=== PATIENT | male | born 1995 | race Caucasian/White ===

== ENCOUNTER 2019-12-02 09:11 | Emergency (ER) | payer SELFPAY ==
[2019-12-02 09:20] VITALS: BP 114/80; PULSE 96; RESP 18; TEMP 36.7; O2SAT 98
--- NOTE | 2019-12-02 09:24 | ED.GENADUL_ITS ---
Discharge Plan Disposition Patient Disposition: HOME Condition: Stable Discharge Details Chief Complaint: Cellulitis Clinical Impression: Cellulitis, gluteal, left Primary Care Provider: Yony Brooks ED Provider: Silvia Hernandez Home Meds and New Rx's Prescriptions: New clindamycin HCl 300 mg capsule 300 mg PO BID 10 Days Qty: 20 RF: 0 No Action naproxen 500 mg tablet 500 mg PO BID RF: 0 methadone 10 mg/5 mL solution 100 mg PO DAILY RF: 0 Discharge Instructions Instructions: Cellulitis (ED) Additional Instructions: Follow up with primary care provider in 3-5 days. Return to ED sooner if any worsening or concerns. Increase oral fluids. Return immediately if any worse chlei of redness, fever, or or worsening sickness. Take medications as directed. Please take Tylenol or Ibuprofen with food every 4-6 hours as needed for pain and swelling. You were advised of possible need for admission today which he declined at this time. Stand Alone Forms: Work Release Medical Decision Making 24-year-old male presents with left buttock lesion with surrounding erythema and swelling. Patient states that this is been present for 2 weeks and has noted drainage. He does report body aches and chills and he did vomit last night. He states decreased appetite for the last 4 days. On exam he has a very large demarcated area of erythema noted to his left buttock with a central puncture wound. This area is approximately 9 cm x 9 cm. Initial lab work-up includes CBC CMP, WBC count is 16.8, absolute neutrophils 11.53, sodium 133 potassium 3.2 chloride 95 anion gap of 12.4 lactate is 1.7, C- reactive protein is 16.56. CT obtained results are noted below. Erythema edges measured and marked by ER staff, 10cm x 8.5cm in diameter measured. FINDINGS: Soft tissues: There is stranding in the posterior knee soft tissues posterior to the sacrum and left gluteus roseann muscle. There is no focal drainable collection. There is skin thickening. Bladder: Unremarkable. The prostate is not enlarged. Bowel: No obstruction or bowel wall thickening. Peritoneal cavity: No ascites, collection or mesenteric inflammatory response. IMPRESSION: Skin thickening and subcutaneous edema in the left buttock region. No drainable abscess. DATA REPOSITORY: All CT scans at this facility are submitted to the National Radiology Data Registry (NRDR) Dose Index Registry (DIR) with the [employer] (ACR). RADIATION OPTIMIZATION: All CT scans at this facility use at least one of these dose optimization techniques: automated exposure control; mA and/or kV adjustment per patient size (includes targeted exams where dose is matched to clinical indication); or iterative reconstruction. 1132: Discussed potential for admission with patient he refuses admission at this time. He would rather go home with oral antibiotics strongly encourage patient to stay he refused at this time. Discussed risks and benefits. He is alert and oriented at this time and appears to have appropriate decision making process. Discussed strict return instructions, discussed returning for any erythema that spreads outside of marked lines, fever, worsening or any point. Verbalized understanding. He is alert and oriented x4 and is able to make his own decisions. Will discharge with clindamycin he did receive 1 dose of clindamycin 600 mg IV piggyback and 2 L of normal saline in department. He is requesting food and is able to tolerate p.o. without difficulty prior to discharge. His vital signs are stable and he is remained hemodynamically stable throughout stay. HPI General Mode of arrival: ambulatory . Date/Time Provider Initiated Documentation: 12/02/19 09:20 . Limitations to Documentation: no limitations . Information obtained by: patient . HPI Narrative: 24-year-old male presents with left buttock lesion with surrounding erythema and swelling. Patient states that this is been present for 2 weeks and has noted drainage. He does report body aches and chills and he did vomit last night. He states decreased appetite for the last 4 days. On exam he has a very large demarcated area of erythema noted to his left buttock with a central puncture wound. This area is approxim ately 9 cm x 9 cm. Related Data Home Medications Medication Instructions Recorded Confirmed methadone 10 mg/5 mL oral solution 100 mg PO DAILY ml 02/02/19 12/02/19 naproxen 500 mg tablet 500 mg PO BID 02/02/19 12/02/19 clindamycin HCl 300 mg PO BID 10 Days #20 cap 12/02/19 Previous Rx's Medication Instructions Recorded clindamycin HCl 300 mg PO BID 10 Days #20 cap 12/02/19 Allergies Allergy/AdvReac Type Severity Reaction Status Date / Time No Known Allergies Allergy Unverified 12/02/19 09:25 Review of Systems Narrative: Constitutional: Negative for weight loss, alert and oriented, well groomed, normal body habitus, appears uncomfortable. HEENT: Denies trauma, headaches, blurry vision, nasal discharge, sore throat, trouble swallowing. Chest: Denies chest pain, palpitations, irregular rhythm, hypertension. Respiratory: Denies Shortness of breath, cough, hemoptysis. GI: Denies abdominal pain, diarrhea, constipation. : Denies dysuria, hematuria, flank pain, rectal bleeding. Skin: Large area of erythema and swelling and warmth noted to his left buttock x2 weeks. Neuro: Denies dizziness, blurry vision, weakness, syncope, headache or facial numbness. Hematologic: Denies easy bruising, intolerance to heat or cold, hair loss. [facility] Medical History Back pain (Acute) Generalized anxiety disorder (Acute) Headache (Acute) Obesity (Chronic) Substance abuse (Acute) Social History Smoking/Tobacco Use Status: Former Tobacco Use Alcohol Intake: current Alcohol Intake frequency: 3 or more drinks per day Drug use: Daily Substance use type: marijuana Do you feel safe at home: Yes Do you feel safe in your relationship?: Yes Exam Narrative Exam Narrative: Constitutional: Allert and oriented x3. Appears stated age. Obese body habitus. Head: Normocephalic, no trauma. Eyes: Pupils PERRLA, Red reflex noted, EOM's intact. Eyelids symmetrical withour lesions, discharge, or swelling. ENT: Bilateral TM's WNL, External ear normal to inspection, no mastoid TTP, swelling, or erythema, Nasal turbinates WNL, no nasal discharge. Normal dentition, Posterior pharynx WNL, no exudate. Chest: RRR, Normal S1, S2, distal pulses intact. Resp: Lungs clear to auscultation bilaterally, no wheezes, rales, or rhonchi. Musculoskeletal: Normal gait, 5/5 strength to all four extremities. Skin: Mildly diaphoretic, very large area of erythema noted to the left buttock measuring approximately 9 cm x 9 cm with a central wound. No fluctuance no drainable abscess noted at this time. Neurologic: Cranial nerves II-XII intact. Alert and oriented x 3. DTR's intact. Hematologic/Lymphatic: No ecchymosis, no lymphadenopathy. Skin Full body images: 1. Large area of erythema and warmth 2. Central puncture wound
[2019-12-02 09:43] LABS: Clarity Clear (Clear); Specific Gravity 1.017 (1.005-1.025)
[2019-12-02 09:44] LABS: Bilirubin Color Interference (Negative); Blood Color Interference (Negative); Glucose Color Interference mg/dL (Negative); Ketones Color Interference mg/dL (Negative); Leukocyte Esterase Color Interference (Negative); Nitrite Color Interference (Negative); Urobilinogen Color Interference EU/dL (Up TO 0.2)
[2019-12-02] MEDS: Normal Saline 1,000 ML 1000 ML IV ×2 (09:45→10:35)
[2019-12-02 09:53] LABS: Lactate 1.7 mmol/L (0.6-1.4)
[2019-12-02 09:55] LABS: Bacteria Moderate HPF (Negative); C & S Indicated? Yes; Casts Negative LPF (Negative); Crystals Negative HPF (Negative); Epithelial Cells Rare HPF (Negative); Mucus Moderate (Negative); RBC Negative HPF (0-2)
[2019-12-02] MEDS: Normal Saline Flush 10 ML SYR IVP (09:56)
[2019-12-02 09:59] LABS: Abs Immature Grans 0.08 k/cumm (0.0-0.09); Absolute Lymphocyte Count 2.82 k/cumm (1.2-3.4); Absolute Neutrophil Count 11.53 k/cumm (1.2-6.7); Basophils % 0.2; Eosinophils % 0.5; HCT 40.6 % (40.0-50.0); HGB 14.3 g/dL (13.5-17.5); Immature Grans % 0.5 %; Lymphocytes % 16.6; Mean Corp. HGB Concentration 35.2 g/dL (32.0-36.0); Mean Corpuscular Hemoglobin 30.8 pg (27.0-33.0); Mean Corpuscular Volume 87.3 fL (80-95); Monocytes % 14.3; Neutrophils % 67.9; Platelet Count 264 x1000/uL (130-400); RBC 4.65 m/cumm (4.50-6.00); RBC Distribution Width 12.2 % (11.8-14.1); White Blood Cell Count 16.98 k/cumm (4.4-10.8)
[2019-12-02 10:04] LABS: Absolute Basophil Count 0.03 k/cumm (0.0-0.2); Absolute Eosinophil Count 0.08 k/cumm (0.0-0.7); Absolute Monocyte Count 2.43 k/cumm (0.11-0.7)
[2019-12-02 10:11] LABS: ALT 127 U/L (16-63); AST 59 U/L (15-37); Albumin 3.7 g/dL (3.4-5.0); Alkaline Phosphatase 100 U/L (46-116); Anion Gap 12.4 mmol/L (3-11); BUN 9 mg/dL (7-18); Bilirubin, Total 1.9 mg/dL (0.2-1.0); C-Reactive Protein 16.56 mg/dL (0.0-0.3); CO2 25.6 mmol/L (21.0-32.0); CREATININE 1.08 mg/dL (0.70-1.30); Calcium 9.4 mg/dL (8.5-10.1); Chloride 95 mmol/L (98-107); Glucose 107 mg/dL (74-106); Potassium 3.2 mmol/L (3.5-5.1); Sodium 133 mmol/L (136-145); Total Protein 8.9 g/dL (6.4-8.2)
[2019-12-02 10:17] LABS: Diff Comment Agrees w/ Instrument; RBC Morphology Normal
[2019-12-02] MEDS: Ketorolac 30 MG/ML VIAL IVP (10:24)
--- NOTE | 2019-12-02 10:45 | NUR.NOTE ---
Nursing Note: Edge redness measure and marked 10 x 8.5 Per Silvia [employer] request
[2019-12-02] MEDS: Omnipaque 350 MG/ML 100 ML BTL IJ (10:58)
[2019-12-02] MEDS: Normal Saline - Diluent 50 ML VIAL IV (10:58)
--- NOTE | 2019-12-02 10:59 | DI.CT_ITS ---
EXAM: CT PELVIC W CLINICAL HISTORY: Left buttock cellulitis eval for abscess. TECHNIQUE: Imaging Protocol: Axial computed tomography images with coronal and sagittal reformatted images were created and reviewed. CONTRAST MATERIAL: Intravenous: Omnipaque 350 Contrast volume:100 ml Contrast route:IV - Oral: no COMPARISON: No exams were available for comparison FINDINGS: Soft tissues: There is stranding in the posterior knee soft tissues posterior to the sacrum and left gluteus roseann muscle. There is no focal drainable collection. There is skin thickening. Bladder: Unremarkable. The prostate is not enlarged. Bowel: No obstruction or bowel wall thickening. Peritoneal cavity: No ascites, collection or mesenteric inflammatory response. IMPRESSION: Skin thickening and subcutaneous edema in the left buttock region. No drainable abscess. DATA REPOSITORY: All CT scans at this facility are submitted to the National Radiology Data Registry (NRDR) Dose Index Registry (DIR) with the [employer] (ACR). RADIATION OPTIMIZATION: All CT scans at this facility use at least one of these dose optimization te chniques: automated exposure control; mA and/or kV adjustment per patient size (includes targeted exa ms where dose is matched to clinical indication); or iterative reconstruction.
[2019-12-02] MEDS: CLINDAMYCIN 600 MG/50 ML BAG 100 MG IVPB (11:01)
[2019-12-02 11:06] VITALS: BP 138/70; PULSE 82; RESP 18; TEMP 36.6; O2SAT 97
[2019-12-02 12:00] VITALS: BP 130/90; PULSE 78; RESP 16; TEMP 36.5; O2SAT 98
== END 2019-12-02 12:00 | disposition home or self-care (01) ==
PROVIDERS: Emergency Provider Registered Nurse Emergency; PCP Internal Medicine
DX: L02.31 Cutaneous abscess of buttock (principal); M79.10 Myalgia, unspecified site; R11.2 Nausea with vomiting, unspecified
CPT/HCPCS: 36415; 80053; 87040; 96361; 96365; 96375; 99285; 72193; 81003; 81015; 83605; 85025; 86140; 87086; J1885; J3490

== ENCOUNTER 2021-10-25 16:15 | Emergency (ER) | payer SELFPAY ==
[2021-10-25 16:19] VITALS: BP 141/67; PULSE 85; RESP 18; TEMP 36.3; O2SAT 99
--- NOTE | 2021-10-25 16:36 | ED.GENADUL_ITS ---
Discharge Plan Disposition Patient Disposition: HOME Condition: Improving Discharge Details Clinical Impression: Finger laceration Primary Care Provider: Yony Brooks ED Provider: Nam Mcclellan Home Meds and New Rx's Prescriptions: Continued methadone 10 mg/5 mL solution 100 mg PO DAILY RF: 0 Discharge Instructions Instructions: Finger Laceration (ED) Additional Instructions: Your tetanus was updated. You have declined any x-ray and understand the risk. Laceration repaired without difficulty. Sutures should come out in the next 10- 14 days. Keep the area clean and dry, change antibiotic dressing daily. Wear splint to avoid reopening the laceration. Please watch for new or worsening symptoms and return to the ER for any concerns. Medical Decision Making 25-year-old gentleman, [id number], tetanus status not up-to-date, presents for a right fifth digit laceration he sustained at work just prior to arrival on a piece of sheet metal while wearing gloves. We discussed the importance of updating tetanus status and obtaining x-ray. He is agreeable to tetanus status declines x-ray. Understands the risk of bony involvement, retained foreign body, etc. Denies any other injury. Reports paresthesias but neurologically grossly intact. No tendon injury. Bleeding controlled. 5 out of 5 strength. Tetanus updated. Laceration was repaired without difficulty. Antibiotic dressing was then applied and a splint was applied. Standard discharge and return precautions were provided. This documentation was generated using [employer] system, please disregard any oddities of phrase or misspellings. Medical Records Medical records reviewed: Yes I reviewed the patient's medical records. HPI General Mode of arrival: ambulatory . Date/Time Provider Initiated Documentation: 10/25/21 16:15 . Limitations to Documentation: no limitations . Information obtained by: patient . History of Present Illness 25 year old M presents to the emergency department with the chief complaint of Pinky Lac, described as mild, with intensity rated at 2. Quality is described as aching, and is localized to the right and upper extremity. Patient reports no radiation. Patient started experiencing this minute(s) (30) and it has been constant. No relieving factors improve symptom(s), No exacerbating fac tors reported . Patient notes other (tingling). Patient did receive the following treatments prior to arrival, none Related Data Home Medications Medication Instructions Recorded Confirmed methadone 10 mg/5 mL oral solution 100 mg PO DAILY ml 02/02/19 10/25/21 Allergies Allergy/AdvReac Type Severity Reaction Status Date / Time No Known Allergies Allergy Unverified 10/25/21 16:28 General Stated Complaint: Laceration ALESSANDRO: 4 Review of Systems Constitutional Constitutional: Denies fever(s) and Denies weakness Musculoskeletal Musculoskeletal: Denies arthralgias, Denies numbness and Reports tingling Integumentary/Breasts Skin/Breast: Denies erythema Neurologic Neurologic: Denies numbness, Reports tingling and Denies weakness PFSH All Active Problems Finger laceration (Acute) Medical History Back pain Generalized anxiety disorder Headache Obesity Substance abuse Social History Smoking/Tobacco Use Status: Current every day Tobacco Type: cigarettes Smoking risk assessment performed?: Yes Alcohol Intake: current Alcohol Intake frequency: 3 or more drinks per day Drug use: Daily Substance use type: marijuana Do you feel safe at home: Yes Do you feel safe in your relationship?: Yes Exam Const General: cooperative, healthy appearing, comfortable and no acute distress Orientation: alert and awake HENMT Head: normal to inspection, normocephalic and atraumatic Eyes Conjunctivae: conjunctivae normal Neck Neck: normal visual inspection, trachea midline and supple Resp Effort & Inspection: normal respiratory effort and able to speak in complete sentences Cardio Rate: regular rate Rhythm: regular rhythm Skin General skin exam: no rashes or lesions noted Neuro General: patient alert, patient awake, moves all extremities and no focal motor deficits Cognition: normal cognition Speech: speech normal Gait: normal gait Motor: muscle tone normal throughout Sensory Exam: no sensory deficits noted and normal double simultaneous stimulation Extrem General: full ROM and capillary refill normal Hand/finger images: 1. Irregular 3 cm laceration, slight oozing of blood. 5 out of 5 strength. No obvious foreign body. Diffuse mild discomfort to palpation. Patient subjectively reports some tingling but otherwise unremarkable neuro exam. Tendon function normal. Normal capillary refill and radial pulse. Psych Appearance: grossly normal Mental Status: mental status grossly normal Course Vital Signs Vital signs: Vital Signs Temperature 36.3 C L 10/25/21 16:19 Pulse 85 02/03/22 16:19 Respiratory Rate 18 10/25/21 16:19 Blood Pressure 141/67 H 10/25/21 16:19 Pulse Oximetry 99 10/25/21 16:19 Temperature 36.3 C L 10/25/21 16:19 Temperature Source Temporal Artery Scan 10/25/21 16:19 Pulse 85 10/25/21 16:19 Respiratory Rate 18 10/25/21 16:19 Respiratory Effort Non-Labored 10/25/21 16:22 Blood Pressure 141/67 H 10/25/21 16:19 Blood Pressure Position Sitting 10/25/21 16:19 Pulse Oximetry 99 10/25/21 16:19 Pain Level 3 10/25/21 16:22 Procedures Laceration Laceration 1: Site: hand Side (If applicable): left Size (cm): 3 Description: irregular Depth: simple, single layer Local Anesthetic: Lidocaine 1% Amount of anesthesia used (mL): 6 Pre-repair: wound explored, irrigated extensively and deep structures in tact Skin layer closed with: nylon Size (cm): 4-0 Number of sutures: 6 Technique: simple, interrupted Subcutaneous layer closed with: chromic gut Size: 3-0 Number of sutures: 2 Technique: simple, interrupted (Obtained hemostasis)
== END 2021-10-25 17:30 | disposition home or self-care (01) ==
PROVIDERS: Emergency Provider Physician Assistant; PCP Internal Medicine
DX: S61.216A Laceration without foreign body of right little finger without damage to nail, initial encounter (principal); W26.8XXA Contact with other sharp object(s), not elsewhere classified, initial encounter; Y99.0 Civilian activity done for income or pay
CPT/HCPCS: 12002; 29130; 90471

== ENCOUNTER 2023-06-23 11:47 | Inpatient (IN) | payer SELFPAY ==
[2023-06-23] VITALS (27 sets, daily range): BP systolic 130–199; BP diastolic 65–112; PULSE 58–134; RESP 8–36; TEMP 36.5–37.1; O2SAT 95–99
--- NOTE | 2023-06-23 12:00 | DI.CT_ITS ---
Exam(s) CT NECK W EXAM: CT NECK W INDICATION: thorat pain, peritonsillar abscess vs deep space i. COMPARISON: No exams were available for comparison TECHNIQUE: FINDINGS: VISUALIZED PARANASAL SINUSES: Unremarkable. NASOPHARYNX: Unremarkable ORODENTAL: Unremarkable. OROPHARYNX: There is a large firstly enhancing. Measures approximately 3 by 2.7 cm. No abscess on t he left side. Right tonsillar abscess extends towards the posterior pharyngeal tissues but not acros s the midline. HYPOPHARYNX: Unremarkable. Valleculae and epiglottis and aryepiglottic folds appear normal. VOCAL CORDS: Unremarkable. No masses evident. Subglottic airway appears unremarkable. THYROID GLAND: Unremarkable. Normal size and no obvious nodules. SALIVARY GLANDS: Unremarkable. No significant findings in the parotid and submandibular glands. LYMPH NODES: Slightly enlarged reactive lymph nodes in the right-side of the neck noted OTHER: VISUALIZED LUNG APICES: No significant findings. IMPRESSION: 1. Large right tonsillar abscess. Called by myself to ER physician. RADIATION DOSE DELIVERED: 597.84mGy.cm Total DLP DATA REPOSITORY: All CT scans at this facility are submitted to the National Radiology Data Registry (NRDR) Dose Index Registry (DIR) with the [employer] (ACR). RADIATION OPTIMIZATION: All CT scans at this facility use at least one of these dose optimization te chniques: automated exposure control; mA and/or kV adjustment per patient size (includes targeted exa ms where dose is matched to clinical indication); or iterative reconstruction.
--- NOTE | 2023-06-23 12:05 | W.ED.GENAD ---
Discharge Plan Disposition Patient Disposition: Admit to [facility] Discharge Details Chief Complaint: RespSymp Clinical Impression: Sepsis, Abscess of tonsil Primary Care Provider: Yony Brooks ED Provider: Lena Pitt Home Meds and New Rx's Prescriptions: No Action methadone 10 mg/5 mL solution 150 mg PO DAILY Patient Comments: PT reports change in dose. Medical Decision Making 27yo previously healthy male presenting for sore throat for 10 days. Tachycardiac on arrival to 130's, ill-appearing. Right peritonsillar swelling on exam with uvular deviation. No respiratory distress or vocal changes. No indication of airway compromise, no need for intubation. Will treat for sepsis with 2L IVFB, unasyn for intraoral carol ann. Tylenol/torado/methyl prednisone for symptoms. IV unsaysn. Labs reviewed as below, CBC with marked leukocytosis, CMP with no actionable abnormalities. Borderline elevated lactate at 2.1; will repeat after fluids. Normal procal. CT independently reviewed, peritonsillar swelling on my view, agree with radiology read below, discussed with Dr. Burr reading radiologist. Discussed with ENT administration vice president Dr. Brown who also reviewed imaging; no clear rim enhancement and potentially not amenable to drainage at this time but appropriate to try needle aspiration. Bedside aspiration done without obtaining any significant quantity of fluid; patient tolerated procedure well. On reassessment HR improved to low 90'ss. Discussed with hospitalist administration vice president Dr. Arellano and patient accepted to medicine service for further workup and management of sepsis. Imaging Data Radiologic Study: Imaging: CT Scan Radiologist's impression: IMPRESSION: 1.? Large right tonsillar abscess. Lab Data Lab results reviewed: Yes I reviewed the patient's lab results. Labs: 06/23/23 12:30 Blood Blood Culture - Pending 06/23/23 12:18 Blood Blood Culture - Pending 06/23/23 12:22 Tonsil - Not Specified Group A Streptococcus Culture - Pending Laboratory Tests Range/Units 06/23/23 06/23/23 06/23/23 12:18 12:18 12:18 WBC (4.4-10.8) 10^3/uL 17.29 H RBC (4.36-5.78) 10^6/uL 5.52 Hgb (13.5-17.5) g/dL 15.9 Hct (40.0-50.0) % 46.8 MCV (80-95) fL 85 MCH (27.0-33.0) pg 28.8 MCHC (32.0-36.0) % 34.0 RDW (11.8-14.1) % 11.5 L Plt Count (130-400) 10^3/uL 287 MPV (8.0-11.0) fL 9.0 Immature Gran % 0.6 Neutrophils % 70.3 Lymphocytes % 19.7 Monocytes % 7.3 Eosinophils % 1.7 Basophils % 0.4 Nucleated RBC % (0.0-0.3) % 0.0 Absolute Neutrophils (1.2-6.7) 10^3/uL 12.15 H Absolute Lymphocytes (1.2-3.4) 10^3/uL 3.41 H Absolute Monocytes (0.1-0.8) 10^3/uL 1.26 H Absolute Eosinophils (0.0-0.7) 10^3/uL 0.29 Absolute Basophils (0.0-0.2) 10^3/uL 0.07 VBG Lactate (0.6-1.4) mmol/L Sodium (136-145) mmol/L 135 L Potassium (3.5-5.1) mmol/L 3.5 Chloride (98-107) mmol/L 97 L Carbon Dioxide (21.0-32.0) mmol/L 30.3 Anion Gap (3-11) mmol/L 7.7 BUN (7-18) mg/dL 9 Creatinine (0.70-1.30) mg/dL 1.2 Est GFR (CKD-EPI 2020) (mL/min/1.73m2) 86.07 Glucose (74-106) mg/dL 157 H Calcium (8.5-10.1) mg/dL 10.4 H Total Bilirubin (0.2-1.0) mg/dL 0.5 AST (15-37) U/L 24 ALT (16-63) U/L 67 H Alkaline Phosphatase (46-116) U/L 138 H Total Protein (6.4-8.2) g/dL 9.8 H Albumin (3.4-5.0) g/dL 4.3 Procalcitonin ng/mL < 0.1 COVID-19 Source SARS-CoV-2 (PCR) (Negative) Monoscreen (Negative) Range/Units 06/23/23 06/23/23 06/23/23 12:18 12:18 12:34 WBC (4.4-10.8) 10^3/uL RBC (4.36-5.78) 10^6/uL Hgb (13.5-17.5) g/dL Hct (40.0-50.0) % MCV (80-95) fL MCH (27.0-33.0) pg MCHC (32.0-36.0) % RDW (11.8-14.1) % Plt Count (130-400) 10^3/uL MPV (8.0-11.0) fL Immature Gran % Neutrophils % Lymphocytes % Monocytes % Eosinophils % Basophils % Nucleated RBC % (0.0-0.3) % Absolute Neutrophils (1.2-6.7) 10^3/uL Absolute Lymphocytes (1.2-3.4) 10^3/uL Absolute Monocytes (0.1-0.8) 10^3/uL Absolute Eosinophils (0.0-0.7) 10^3/uL Absolute Basophils (0.0-0.2) 10^3/uL VBG Lactate (0.6-1.4) mmol/L 2.1 H Sodium (136-145) mmol/L Potassium (3.5-5.1) mmol/L Chloride (98-107) mmol/L Carbon Dioxide (21.0-32.0) mmol/L Anion Gap (3-11) mmol/L BUN (7-18) mg/dL Creatinine (0.70-1.30) mg/dL Est GFR (CKD-EPI 2020) (mL/min/1.73m2) Glucose (74-106) mg/dL Calcium (8.5-10.1) mg/dL Total Bilirubin (0.2-1.0) mg/dL AST (15-37) U/L ALT (16-63) U/L Alkaline Phosphatase (46-116) U/L Total Protein (6.4-8.2) g/dL Albumin (3.4-5.0) g/dL Procalcitonin ng/mL COVID-19 Source Nasal/Nares SARS-CoV-2 (PCR) (Negative) Negative Monoscreen (Negative) Negative HPI General Mode of arrival: ambulatory. Date/Time Provider Initiated Documentation: 06/23/23 11:56. Limitations to Documentation: no limitations. Information obtained by: patient. HPI Narrative: 27yo previously healthy male presenting for sore throat for 10 days. Worsening. Decreased PO the past three days, no food, has been doing 'okay' with fluids. Can swallow saliva but is painful, has been spitting it out frequently. No vocal changes. No difficulty breathing. Feels generally unwell, No fevers, chills, rash, nasuea, vomiting, abdominal pain, or other concerns. Related Data Home Medications Medication Instructions Recorded Confirmed methadone 10 mg/5 mL oral solution 150 mg PO DAILY 02/02/19 06/23/23 Allergies Allergy/AdvReac Type Severity Reaction Status Date / Time No Known Allergies Allergy Unverified 10/25/21 16:28 General Stated Complaint: RespSymp ALESSANDRO: 3 Review of Systems Narrative: see HPI PFSH All Active Problems (Updated 06/23/23 @ 15:03 by Lena Pitt MD) Sepsis (Acute) Abscess of tonsil (Acute) Medical History (Updated 06/23/23 @ 15:03 by Lena Pitt MD) Back pain Generalized anxiety disorder Headache Obesity Substance abuse Social History Smoking/Tobacco Use Status: Current every day Tobacco Type: cigarettes Smoking risk assessment performed?: Yes Alcohol Intake: current Alcohol Intake frequency: 3 or more drinks per day Drug use: Daily Substance use type: marijuana Do you feel safe at home: Yes Do you feel safe in your relationship?: Yes Exam Narrative Exam Narrative: General: Diaphoretic, ill appearing Head: Normocephalic, atraumatic Neck: Trachea midline, Neck supple. ENT: TM's clear. MMM. Uvula deviated to left, apparent large right peritonsillar abscess Cardiac: Tachycardiac, regular,, no murmurs appreciated Resp: No respiratory distress. CTAB. Abd: Soft, non-distended, nontender : No suprapubic tenderness. Extremities: No deformities. No peripheral edema. Neurologic: GCS 15. Moves all extremities freely against gravity Course Vital Signs Vital signs: Vital Signs Temperature 37.1 C 06/23/23 11:49 Pulse 133 H 06/23/23 11:49 Respiratory Rate 20 06/23/23 11:49 Blood Pressure 199/112 H 06/23/23 11:49 Pulse Oximetry 99 06/23/23 11:49 Temperature 37.1 C 06/23/23 11:49 Pulse 133 H 06/23/23 11:49 Respiratory Rate 20 06/23/23 11:49 Blood Pressure 199/112 H 06/23/23 11:49 Pulse Oximetry 99 06/23/23 11:49 Oxygen Delivery Method Room Air 06/23/23 11:49 Oxygen Flow Rate 0 06/23/23 11:49 Lab/Test Results Lab/Test Results: 06/23/23 12:03 Blood Blood Culture - Pending 06/23/23 12:03 Blood Blood Culture - Pending POC Strep Test-ANGIE(Rapid) Start: 06/23/23 12:04 Freq: Status: Active Protocol: Document 06/23/23 12:04 WINTER (Rec: 06/23/23 12:04 WINTER [id number]) Strep test-ANGIE(Rapid)-POC POC-Strep test-ANGIE (Rapid) Negative POC-Strep test-ANGIE (Rapid) Negative
[2023-06-23 12:30] LABS: Abs Immature Grans 0.11 10^3/uL (0.0-0.06); Absolute Basophil Count 0.07 10^3/uL (0.0-0.2); Absolute Eosinophil Count 0.29 10^3/uL (0.0-0.7); Absolute Lymphocyte Count 3.41 10^3/uL (1.2-3.4); Absolute Monocyte Count 1.26 10^3/uL (0.1-0.8); Absolute Neutrophil Count 12.15 10^3/uL (1.2-6.7); Basophils % 0.4; Eosinophils % 1.7; HCT 46.8 % (40.0-50.0); HGB 15.9 g/dL (13.5-17.5); Immature Grans % 0.6; Lymphocytes % 19.7; MCH 28.8 pg (27.0-33.0); MCV 85 fL (80-95); Monocytes % 7.3; Neutrophils % 70.3; Platelet Count 287 10^3/uL (130-400); RBC 5.52 10^6/uL (4.36-5.78); RDW 11.5 % (11.8-14.1); RDW-SD 35.2 fL; WBC 17.29 10^3/uL (4.4-10.8)
[2023-06-23] MEDS: AMPICILLIN/SULBACTAM 3 GM in Normal Saline 100 ML IVPB ×2 (12:33→21:29)
[2023-06-23 12:34] LABS: Lactate 2.1 mmol/L (0.6-1.4)
[2023-06-23] MEDS: Normal Saline 1,000 ML 1000 ML IV ×2 (12:34→13:24)
[2023-06-23] MEDS: Ketorolac 15 MG/ML VIAL IVP (12:37)
[2023-06-23] MEDS: methylPREDNISolone SUCC 125 MG VIAL IVP (12:37)
[2023-06-23 12:40] LABS: Source Nasal/Nares
[2023-06-23 12:54] LABS: ALT 67 U/L (16-63); AST 24 U/L (15-37); Albumin 4.3 g/dL (3.4-5.0); Alkaline Phosphatase 138 U/L (46-116); Anion Gap 7.7 mmol/L (3-11); BUN 9 mg/dL (7-18); Bilirubin, Total 0.5 mg/dL (0.2-1.0); CO2 30.3 mmol/L (21.0-32.0); CREATININE 1.2 mg/dL (0.70-1.30); Calcium 10.4 mg/dL (8.5-10.1); Chloride 97 mmol/L (98-107); Estimated GFR 86.07 (mL/min/1.73m2); Glucose 157 mg/dL (74-106); Potassium 3.5 mmol/L (3.5-5.1); Sodium 135 mmol/L (136-145); Total Protein 9.8 g/dL (6.4-8.2)
[2023-06-23 13:11] LABS: Procalcitonin < 0.1 ng/mL
[2023-06-23] MEDS: Normal Saline - Diluent 50 ML VIAL IJ (13:11)
[2023-06-23] MEDS: Omnipaque 350 MG/ML 500 ML BTL-Imaging package IJ (13:11)
[2023-06-23 13:20] LABS: COVID-19 PCR Negative (Negative)
[2023-06-23] MEDS: ACETAMINOPHEN 1,000 MG/100 ML BTL 400 MG IVPB (13:24)
[2023-06-23 14:35] LABS: Mono Screening Negative (Negative)
[2023-06-23 15:13] LABS: Lactate 1.1 mmol/L (0.6-1.4)
--- NOTE | 2023-06-23 16:33 | W.ED.PROC ---
Date of service: 06/23/23 Time of Service: 15:00 Procedures Abscess I/D Site: Other (peritonsillar) Side (if applicable): Right Local Anesthetic: Other Anesthetic (benzocaine spray) Technique: Needle Aspiration Amount of fluid expressed (mL): 0 Irrigation: No Packing used?: None
--- NOTE | 2023-06-23 17:39 | HPE_ITS ---
Date of service: 06/23/23 Time of Service: 15:07 Assessment and Plan Assessment and plan (1) Peritonsillar abscess: Status: Acute Assessment and plan: Neck CT shows large tonsillar abscess WBC 17.29 Will continue Unasyn and add metronidazole Monitor inflammatory markers CBC in AM Dexametasone was considered but not ordered for patients > 18 as the evidence is inconclusive. The most likely benefit would be decreased pain and the patient has 3/10 pain and eating Will continue pain management with Acetaminophen scheduled and Ketorolac scheduled with daily reevaluation (2) Sepsis: Status: Acute Assessment and plan: As above BMP in AM (3) Discharge planning issues: Status: Acute Assessment and plan: The patient is independent at home. Will go home with no needs. CM aware of admission and will address any needs for discharge The patient is not a candidate for DVT prophylaxis -Hannah score for assessing venous thromboembolism risk in hospitalized adult patients is 0 to 3 points -lower risk History of Present Illness History of Present Illness Chief Complaint: Sore throat, swelling, difficulty swallowing Narrative: This 27yo previously healthy male presenting for sore throat for 10 days.?He reports difficulty eating, night sweats, denies fevers and chills. Tachycardiac on arrival to 130's too the emergency room at [facility]. The emergency room provider reported right peritonsillar swelling on exam with uvular deviation, neck CT sh ow right large tonsilar abscess and attemps to drain the abscess twice with minimal output. The Ed provider mentioned finding discussed with Dr. Burr radiologist and ENT carbon capture power plant manager Dr. Brown who also reviewed imaging. It was also reported that the patient had no respiratory distress or vocal changes.? No indication of airway compromise, no need for intubation. Procalcitonin was normal, lactate 2.1 with marked leukocytosis and he was treated for sepsis with 2L IVFB, IV unasyn for intraoral carol ann.? Tylenol/torado/methyl prednisone for symptoms.?Repeated lactate was 1.1., HR was in the 90's. The patient was diiscussed with hospitalist carbon capture power plant manager Dr. Arellano and patient accepted to medicine service for further evaluation and management of tonsilar abscess and suspected sepsis.? The patient was comfortable and calm when seen.The patient report having his pain at 3/10 from 9/10 on arrival. He denies shortness of breath and improved swallowing. He denies hematemesis, nausea, vomiting or abdominal pain. He reports smoking fentanyl, drinking socially and getting daily methadone, he denies using IV drugs. Review of Systems Constitutional Constitutional: Reports as per HPI, Reports system reviewed and no additional complaints, except as documented, Denies chills, Denies difficulty sleeping, Reports excessive sweating, Denies fever(s), Denies frequent falls, Denies lethargy, Reports night sweats and Denies weakness Eyes Eyes: Denies change in vision, Denies diplopia and Denies eye discharge ENT Ears, Nose, Mouth, and Throat: Reports dysphagia, Denies dizziness, Reports neck pain and Reports odynophagia Cardiovascular Cardiovascular: Denies chest pain, Denies chest pain with activity, Denies edema, Denies claudication, Denies dyspnea and Denies dyspnea on exertion Respiratory Respiratory: Denies cough, Denies hemoptysis, Denies excessive phlegm production, Denies pain on inspiration, Denies dyspnea and Denies dyspnea on exertion Gastrointestinal Gastrointestinal: Denies abdominal pain, Denies melena, Reports change in bowel habits (constipation at times), Reports dysphagia, Reports odynophagia, Denies vomiting and Denies hematemesis Genitourinary Genitourinary: Denies difficulty urinating Musculoskeletal Musculoskeletal: Reports neck pain Integumentary/Breasts Skin/Breast: Reports system reviewed and no additional complaints, except as documented Neurologic Neurologic: Denies abnormal movements, Denies abnormal speech, Denies confusion, Denies dizziness, Denies frequent falls and Denies weakness Psychiatric Psychiatric: Reports system reviewed and no additional complaints, except as documented and Denies confusion Endocrine Endocrine: Denies deepening of the voice and Reports excessive sweating Hematologic/Lymphatic Hematologic/Lymphatic: Reports system reviewed and no additional complaints, except as documented PFSH All Active Problems (Updated 06/24/23 @ 11:58 by Moises Brown MD) Peritonsillar cellulitis (Acute) Discharge planning issues (Acute) Peritonsillar abscess (Acute) Sepsis (Acute) Abscess of tonsil (Acute) Medical History (Updated 06/24/23 @ 11:58 by Moises Brown MD) Back pain Generalized anxiety disorder Headache Obesity Substance abuse Social History Smoking/Tobacco Use Status: Current every day Tobacco Type: cigarettes Smoking risk assessment performed?: Yes Alcohol Intake: current Alcohol Intake frequency: a few times a month Drug use: Daily Substance use type: marijuana Housing: house Do you feel safe at home: Yes Do you feel safe in your relationship?: Yes Meds Allergies and Home Medications Allergies Allergy/AdvReac Type Severity Reaction Status Date / Time No Known Allergies Allergy Unverified 10/25/21 16:28 Home Medications Medication Instructions Recorded Confirmed Type methadone 10 mg/5 mL oral solution 150 mg PO DAILY 02/02/19 06/23/23 History amoxicillin 875 mg-potassium 1 tab PO Q12H peritonsillar 06/25/23 Rx clavulanate 125 mg tablet abscess #20 tabs Exam HENMT Head: normal to inspection, no palpable skull fracture, normocephalic and atraumatic Ears: hearing grossly normal bilaterally General nose exam: external nose normal Face and sinus: normal facial exam Mouth: oral mucosae normal and other (R tonsillar swelling and uvula deviation to the left,redness, no exudate) Throat: tonisls abnormal, uvula not midline (left deviation), abnormal tonsil on the right erythema, hypertrophy and other (irregular surface), peritonsillar mass on the right edematous and uvula laterally displaced to the left Neck Neck: trachea midline and tender (right lateral swelling) Results Labs 06/25/23 06:59 06/25/23 06:59 Labs: Laboratory Results - last 24 hr 06/23/23 06/23/23 06/23/23 12:18 12:18 12:18 WBC 17.29 H RBC 5.52 Hgb 15.9 Hct 46.8 MCV 85 MCH 28.8 MCHC 34.0 RDW 11.5 L Plt Count 287 MPV 9.0 Immature Gran % 0.6 Neutrophils % 70.3 Lymphocytes % 19.7 Monocytes % 7.3 Eosinophils % 1.7 Basophils % 0.4 Nucleated RBC % 0.0 Absolute Neutrophils 12.15 H Absolute Lymphocytes 3.41 H Absolute Monocytes 1.26 H Absolute Eosinophils 0.29 Absolute Basophils 0.07 VBG Lactate Sodium 135 L Potassium 3.5 Chloride 97 L Carbon Dioxide 30.3 Anion Gap 7.7 BUN 9 Creatinine 1.2 Est GFR (CKD-EPI 2020) 86.07 Glucose 157 H Calcium 10.4 H Total Bilirubin 0.5 AST 24 ALT 67 H Alkaline Phosphatase 138 H Total Protein 9.8 H Albumin 4.3 Procalcitonin < 0.1 COVID-19 Source SARS-CoV-2 (PCR) Monoscreen 06/23/23 06/23/23 06/23/23 12:18 12:18 12:34 WBC RBC Hgb Hct MCV MCH MCHC RDW Plt Count MPV Immature Gran % Neutrophils % Lymphocytes % Monocytes % Eosinophils % Basophils % Nucleated RBC % Absolute Neutrophils Absolute Lymphocytes Absolute Monocytes Absolute Eosinophils Absolute Basophils VBG Lactate 2.1 H Sodium Potassium Chloride Carbon Dioxide Anion Gap BUN Creatinine Est GFR (CKD-EPI 2020) Glucose Calcium Total Bilirubin AST ALT Alkaline Phosphatase Total Protein Albumin Procalcitonin COVID-19 Source Nasal/Nares SARS-CoV-2 (PCR) Negative Monoscreen Negative 06/23/23 15:10 WBC RBC Hgb Hct MCV MCH MCHC RDW Plt Count MPV Immature Gran % Neutrophils % Lymphocytes % Monocytes % Eosinophils % Basophils % Nucleated RBC % Absolute Neutrophils Absolute Lymphocytes Absolute Monocytes Absolute Eosinophils Absolute Basophils VBG Lactate 1.1 Sodium Potassium Chloride Carbon Dioxide Anion Gap BUN Creatinine Est GFR (CKD-EPI 2020) Glucose Calcium Total Bilirubin AST ALT Alkaline Phosphatase Total Protein Albumin Procalcitonin COVID-19 Source SARS-CoV-2 (PCR) Monoscreen Last Vital Signs Temp 37.1 C 06/23/23 11:49 Pulse 63 06/23/23 17:15 Resp 8 L 06/23/23 14:10 BP 156/75 H 06/23/23 17:15 Pulse Ox 98 06/23/23 17:14 PAWSS Pt Consumed Any Amount of Alcohol Within the Last 30 days OR had positive JOVI Upon Admission: Yes Have you Been Recently Intoxicated or Drunk Within the Last 30 days?: No Have you Ever Experienced Previous Episodes of Alcohol Withdrawal?: No Have you ever Experienced Withdrawal Seizures?: No Have you ever Experienced Delirium Tremens(DT)s?: No Have you ever undergone Alcohol Rehabilitation Treatment (i.e, inpt ot outpatient treatment programs)?: No Have you ever Experienced Blackouts?: No Have you ever Combined Alcohol with other Downers within the last 90 days?: No Have you ever Combined Alcohol with any other Substance of Abuse during the last 90 days?: No Positive Blood Alcohol level on Presentation? [PCS.BAL]: No Evidence of Increased Autonomic Activity (i.e. HR>120, tremor, sweating, agitation, nausea)?: No Result: 0 Time Spent Time spent with Patient: >75 minutes Time was spent: preparing to see the patient(eg.review tests), obtaining and/or reviewing separately otained hiistory, ordering medications,tests, procedures, referring, communicating with other health multi care technician, indepentently interpreting results, counseling the patient and care coordination
[2023-06-23] MEDS: metroNIDAZOLE 500 MG/100 ML BAG 100 MG IVPB (18:38)
[2023-06-24] MEDS: metroNIDAZOLE 500 MG/100 ML BAG 100 MG IVPB ×3 (03:26→17:30)
[2023-06-24 03:31] VITALS: BP 134/72; PULSE 54; RESP 18; TEMP 36.6; O2SAT 98
[2023-06-24] MEDS: AMPICILLIN/SULBACTAM 3 GM in Normal Saline 100 ML IVPB ×4 (04:16→21:25)
[2023-06-24 07:10] LABS: HGB 13.6 g/dL (13.5-17.5); MCH 28.7 pg (27.0-33.0); MCV 84 fL (80-95); MPV 9.3 fL (8.0-11.0); Platelet Count 275 10^3/uL (130-400); RBC 4.74 10^6/uL (4.36-5.78); RDW 11.6 % (11.8-14.1); RDW-SD 35.4 fL; WBC 15.37 10^3/uL (4.4-10.8)
[2023-06-24 07:20] LABS: Anion Gap 6.5 mmol/L (3-11); BUN 12 mg/dL (7-18); CO2 28.5 mmol/L (21.0-32.0); CREATININE 0.9 mg/dL (0.70-1.30); Calcium 9.7 mg/dL (8.5-10.1); Chloride 103 mmol/L (98-107); Estimated GFR 121.55 (mL/min/1.73m2); Glucose 120 mg/dL (74-106); Potassium 3.1 mmol/L (3.5-5.1); Sodium 138 mmol/L (136-145)
[2023-06-24] MEDS: Methadone Liquid 10 MG/ML 150 MG PO (08:24)
[2023-06-24] MEDS: Omeprazole 20 MG CAPCR PO (08:26)
[2023-06-24 08:35] VITALS: BP 141/85; PULSE 57; RESP 18; TEMP 36.1; O2SAT 98
--- NOTE | 2023-06-24 09:17 | W.PM.PROGNOT ---
Date of Service Date of service: 06/24/23 Time of Service: 09:17 Assessment and Plan Assessment and plan (1) Peritonsillar abscess: Status: Acute Assessment and plan: Neck CT shows large tonsillar abscess WBC 15.39 today Will continue Unasyn and add metronidazole IV as discussed with Dr. Brown and we will transition to oral Augmentin as an outpatient for 10 days tomorrow CBC in AM Dexametasone was considered but not ordered We will continue pain management with -Acetaminophen scheduled - Ketorolac scheduled BMP in AM (2) Sepsis: Status: Acute Assessment and plan: As above BMP in AM (3) Discharge planning issues: Status: Acute Assessment and plan: The patient is independent at home. Will go home with no needs. CM aware of admission and will address any needs for discharge The patient is not a candidate for DVT prophylaxis -Hannah score for assessing venous thromboembolism risk in hospitalized adult patients is 0 to 3 points -lower risk Discharge 06/25 on oral antibiotics as per ENT consult Subjective Subjective Patient reports: no new complaints, feels better, pain is less, tolerating a regular diet, voiding w/o difficulty and afebrile; denies diarrhea, nausea, vomiting or shortness of breath Exam HENTX Head: normal to inspection, no palpable skull fracture, normocephalic and atraumatic Ears: hearing grossly normal bilaterally General nose exam: external nose normal Face and sinus: normal facial exam Mouth: oral mucosae normal and other (R tonsillar swelling and uvula deviation to the left,redness, no exudate) Throat: tonisls abnormal, uvula not midline (left deviation), abnormal tonsil on the right erythema, hypertrophy and other (irregular surface), peritonsillar mass on the right edematous and uvula laterally displaced to the left Neck Neck: trachea midline and tender (right lateral swelling) Resp Effort & Inspection: normal respiratory effort Auscultation: clear to auscultation bilaterally Cardio Jugular venous pressure: no JVD Rhythm: regular rhythm Heart Sounds: S1 normal and S2 normal General: No CVA tenderness Skin General skin exam: no rashes or lesions noted Neuro General: patient alert, patient awake and patient oriented x3 Cognition: normal cognition Speech: speech normal Gait: normal gait Motor: muscle tone normal throughout Extrem General: normal to inspection and full ROM Objective Last Vital Signs Temp 36.1 C L 06/24/23 08:35 Pulse 57 L 06/24/23 08:35 Resp 18 06/24/23 08:35 BP 141/85 H 06/24/23 08:35 Pulse Ox 98 06/24/23 08:35 Laboratory Results - last 24 hr 06/23/23 06/23/23 06/23/23 12:18 12:18 12:18 WBC 17.29 H RBC 5.52 Hgb 15.9 Hct 46.8 MCV 85 MCH 28.8 MCHC 34.0 RDW 11.5 L Plt Count 287 MPV 9.0 Immature Gran % 0.6 Neutrophils % 70.3 Lymphocytes % 19.7 Monocytes % 7.3 Eosinophils % 1.7 Basophils % 0.4 Nucleated RBC % 0.0 Absolute Neutrophils 12.15 H Absolute Lymphocytes 3.41 H Absolute Monocytes 1.26 H Absolute Eosinophils 0.29 Absolute Basophils 0.07 VBG Lactate Sodium 135 L Potassium 3.5 Chloride 97 L Carbon Dioxide 30.3 Anion Gap 7.7 BUN 9 Creatinine 1.2 Est GFR (CKD-EPI 2020) 86.07 Glucose 157 H Calcium 10.4 H Total Bilirubin 0.5 AST 24 ALT 67 H Alkaline Phosphatase 138 H Total Protein 9.8 H Albumin 4.3 Procalcitonin < 0.1 COVID-19 Source SARS-CoV-2 (PCR) Monoscreen 06/23/23 06/23/23 06/23/23 12:18 12:18 12:34 WBC RBC Hgb Hct MCV MCH MCHC RDW Plt Count MPV Immature Gran % Neutrophils % Lymphocytes % Monocytes % Eosinophils % Basophils % Nucleated RBC % Absolute Neutrophils Absolute Lymphocytes Absolute Monocytes Absolute Eosinophils Absolute Basophils VBG Lactate 2.1 H Sodium Potassium Chloride Carbon Dioxide Anion Gap BUN Creatinine Est GFR (CKD-EPI 2020) Glucose Calcium Total Bilirubin AST ALT Alkaline Phosphatase Total Protein Albumin Procalcitonin COVID-19 Source Nasal/Nares SARS-CoV-2 (PCR) Negative Monoscreen Negative 06/23/23 06/24/23 06/24/23 15:10 06:20 06:20 WBC 15.37 H RBC 4.74 Hgb 13.6 D Hct 40.0 MCV 84 MCH 28.7 MCHC 34.0 RDW 11.6 L Plt Count 275 MPV 9.3 Immature Gran % Neutrophils % Lymphocytes % Monocytes % Eosinophils % Basophils % Nucleated RBC % Absolute Neutrophils Absolute Lymphocytes Absolute Monocytes Absolute Eosinophils Absolute Basophils VBG Lactate 1.1 Sodium 138 Potassium 3.1 L Chloride 103 Carbon Dioxide 28.5 Anion Gap 6.5 BUN 12 Creatinine 0.9 Est GFR (CKD-EPI 2020) 121.55 Glucose 120 H Calcium 9.7 Total Bilirubin AST ALT Alkaline Phosphatase Total Protein Albumin Procalcitonin COVID-19 Source SARS-CoV-2 (PCR) Monoscreen PAWSS Pt Consumed Any Amount of Alcohol Within the Last 30 days OR had positive JOVI Upon Admission: Yes Have you Been Recently Intoxicated or Drunk Within the Last 30 days?: No Have you Ever Experienced Previous Episodes of Alcohol Withdrawal?: No Have you ever Experienced Withdrawal Seizures?: No Have you ever Experienced Delirium Tremens(DT)s?: No Have you ever undergone Alcohol Rehabilitation Treatment (i.e, inpt ot outpatient treatment programs)?: No Have you ever Experienced Blackouts?: No Have you ever Combined Alcohol with other Downers within the last 90 days?: No Have you ever Combined Alcohol with any other Substance of Abuse during the last 90 days?: No Positive Blood Alcohol level on Presentation? [PCS.BAL]: No Evidence of Increased Autonomic Activity (i.e. HR>120, tremor, sweating, agitation, nausea)?: No Result: 0 Time Spent with Patient Time Spent with Patient: >50 minutes Time was spent: preparing to see the patient(eg.review tests), ordering medications,tests, procedures, referring, communicating with other health respiratory care program director, indepentently interpreting results, counseling the patient and care coordination
[2023-06-24 09:22] LABS: Lab Add On Test DONE
[2023-06-24 09:32] LABS: Magnesium 2.3 mg/dL (1.8-2.4)
--- NOTE | 2023-06-24 09:36 | PDOC.CMIN ---
Date of service: 06/24/23 Time of Service: 09:36 Care Management Initial Assmt Initial Assessment REASON FOR HOSPITALIZATION:: Peritonsillar abcess PREVIOUS FUNCTIONAL STATUS/SOCIAL/FAMILY SUPPORTS:: Carson lives in [place] with his mom Joana and grandfather Jamie. 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 Carson drives and is independent with his ADLs at baseline. He is enrolled in the MAT Program at [facility] and reports doing well on Methadone. CURRENT FUNCTIONAL STATUS:: Carson is lying in bed when CM comes to meet with him. He readily engages in conversation. He shares he is feeling a little bit better but says he is tired. CM advises him a referral has been made to [employer] for assistance with insurance. Carson reports he didn't qualify for Medicaid in 2020 and doubts he will qualify for it now, as he is currently making more money than he did back then. He, however, is willing to speak with [facility] to explore options. ADVANCE DIRECTIVES:: None on file. Has patient been provided with info about the portal/API?: Yes Did the patient sign up for the portal?: No CODE STATUS:: Full Code INSURANCE COVERAGE / FINANCIAL ISSUES:: None - referral is made to [employer] to enlist their assistance in exploring insurance options CURRENT HOME/COMMUNITY SERVICES/EQUIPMENT:: [facility]. PRIMARY CARE PHYSICIAN:: Yony Brooks MD POTENTIAL DISCHARGE NEEDS:: Follow up appointment with PCP, last dose letter, and plan of care. PATIENT/FAMILY EDUCATION NEEDS:: Review of discharge instructions including medications, limitations and follow up plan of care; discuss Ask Me Three. ANTICIPATED BARRIERS TO DISCHARGE:: None identified at this time. TRANSPORTATION:: Patient will drive himself home, as his car is in the [facility] parking lot. PLAN:: Anticipate Carson will be discharged home with no services when medically cleared by medical provider. He will follow up with his PCP and plan of care as instructed. He will drive himself home via private vehicle when ready. CM will continue to follow. PFSH All Active Problems (Updated 06/24/23 @ 11:58 by Moises Brown MD) Peritonsillar cellulitis (Acute) Discharge planning issues (Acute) Peritonsillar abscess (Acute) Sepsis (Acute) Abscess of tonsil (Acute) Medical History (Updated 06/24/23 @ 11:58 by Moises Brown MD) Back pain Generalized anxiety disorder Headache Obesity Substance abuse Social History Smoking/Tobacco Use Status: Current every day Tobacco Type: cigarettes Smoking risk assessment performed?: Yes Alcohol Intake: current Alcohol Intake frequency: a few times a month Drug use: Daily Substance use type: marijuana Housing: house Do you feel safe at home: Yes Do you feel safe in your relationship?: Yes
--- NOTE | 2023-06-24 11:53 | ECONE_ITS ---
Date of service: 06/24/23 Time of Service: 11:53 History of Present Illness History of Present Illness Chief Complaint: Peritonsillar cellulitis, right Narrative: The patient developed a progressive sore throat, and came into the emergency room with increasing trismus, and increasing right-sided sore throat yesterday. CT scan revealed significant fullness, with areas of hypodensity within the right peritonsillar space. Attempted FNA was negative. The patient was admitted for Unasyn and hydration. Today he notes that he is feeling dramatically better. He notes that he can open his mouth further. He notes decreased difficulty swallowing, and notes no shortness of breath. I was asked to see the patient to assess the situation. Consults Consult date: 06/24/23 Assessment and Plan Assessment and plan (1) Peritonsillar cellulitis: Status: Acute Assessment and plan: His right sided peritonsillar cellulitis appears to be resolving. There is no overt evidence of abscess on exam today. With reducing trismus, and improving symptoms, I do not see a role for reimaging. His white count is trending downward, although still elevated. I reviewed the findings with the patient. With no previous history of peritonsillar abscess, and no outstanding history of recurring sore throats or strep throats, my recommendations will be as follows. First I would keep him overnight for 1 more night so that he gets another full 24 hours of Unasyn. Assuming things continue to improve, I believe he can be sent home on Augmentin 875 twice daily for 10 days. He should follow-up with his primary care provider to make sure that the asymmetry in the tonsils resolves, although I suspect it well. If he develops recurring problems, his primary care provider can then send him back to me. He can use ibuprofen or Tylenol. We did discuss the fact that this occasionally after a severe peritonsillar cellulitis, this will lead to eventual abscess formation, and tonsillectomy might be necessary but this is very unlikely. He had no further questions. I have spoken to the hospitalist team about this case. They had no further questions. Review of Systems Narrative: Negative for any new cardiac, respiratory, GI, , hematology, neurologic, or en docrine problems save for as listed on the admission paperwork [facility] All Active Problems (Updated 06/24/23 @ 11:58 by Moises Brown MD) Peritonsillar cellulitis (Acute) Discharge planning issues (Acute) Peritonsillar abscess (Acute) Sepsis (Acute) Abscess of tonsil (Acute) Medical History (Updated 06/24/23 @ 11:58 by Moises Brown MD) Back pain Generalized anxiety disorder Headache Obesity Substance abuse Social History Smoking/Tobacco Use Status: Current every day Tobacco Type: cigarettes Smoking risk assessment performed?: Yes Alcohol Intake: current Alcohol Intake frequency: a few times a month Drug use: Daily Substance use type: marijuana Housing: house Do you feel safe at home: Yes Do you feel safe in your relationship?: Yes Exam Const General: comfortable Nutritional Appearance: well nourished Orientation: alert, awake and oriented x3 Other: He is not hoarse, hypernasal, or hyponasal. He is handling his secretions with out grimacing. He does not have strep halitosis. He is in good spirits. He does not appear uncomfortable. [facility] Head: normocephalic Mouth: oral mucosae normal, lip normal, tongue normal, moist mucous membranes an d other (No trismus) Teeth and gingiva: dentition normal and gingiva normal Throat: no peritonsillar masses and no postnasal drainage Other: Oropharyngeal exam reveals right-sided 2+ tonsils with minimal displacement medially. The right peritonsillar region is slightly more full than the left, but nonfluctuant and soft. The left tonsil is 2+ without displacement. There is no exudate or erythema to either tonsil. There is no obvious evolving peritonsillar abscess. Neck Neck: full ROM Thyroid: thyroid normal Lymphatic: no lymphadenopathy noted Other: Laryngeal crepitance is preserved. The larynx rises and falls normally with swallow. Results Last Vital Signs Temp 36.1 C L 06/24/23 08:35 Pulse 57 L 06/24/23 08:35 Resp 18 06/24/23 08:35 BP 141/85 H 06/24/23 08:35 Pulse Ox 98 06/24/23 08:35 Labs 06/24/23 06:20 06/24/23 06:20 Labs: Laboratory Results - last 24 hr 06/23/23 06/23/23 06/23/23 12:18 12:18 12:18 WBC 17.29 H RBC 5.52 Hgb 15.9 Hct 46.8 MCV 85 MCH 28.8 MCHC 34.0 RDW 11.5 L Plt Count 287 MPV 9.0 Immature Gran % 0.6 Neutrophils % 70.3 Lymphocytes % 19.7 Monocytes % 7.3 Eosinophils % 1.7 Basophils % 0.4 Nucleated RBC % 0.0 Absolute Neutrophils 12.15 H Absolute Lymphocytes 3.41 H Absolute Monocytes 1.26 H Absolute Eosinophils 0.29 Absolute Basophils 0.07 VBG Lactate Sodium 135 L Potassium 3.5 Chloride 97 L Carbon Dioxide 30.3 Anion Gap 7.7 BUN 9 Creatinine 1.2 Est GFR (CKD-EPI 2020) 86.07 Glucose 157 H Calcium 10.4 H Magnesium Total Bilirubin 0.5 AST 24 ALT 67 H Alkaline Phosphatase 138 H Total Protein 9.8 H Albumin 4.3 Procalcitonin < 0.1 COVID-19 Source SARS-CoV-2 (PCR) Monoscreen Add-On Test Request 06/23/23 06/23/23 06/23/23 12:18 12:18 12:34 WBC RBC Hgb Hct MCV MCH MCHC RDW Plt Count MPV Immature Gran % Neutrophils % Lymphocytes % Monocytes % Eosinophils % Basophils % Nucleated RBC % Absolute Neutrophils Absolute Lymphocytes Absolute Monocytes Absolute Eosinophils Absolute Basophils VBG Lactate 2.1 H Sodium Potassium Chloride Carbon Dioxide Anion Gap BUN Creatinine Est GFR (CKD-EPI 2020) Glucose Calcium Magnesium Total Bilirubin AST ALT Alkaline Phosphatase Total Protein Albumin Procalcitonin COVID-19 Source Nasal/Nares SARS-CoV-2 (PCR) Negative Monoscreen Negative Add-On Test Request 06/23/23 06/24/23 06/24/23 15:10 06:20 06:20 WBC 15.37 H RBC 4.74 Hgb 13.6 D Hct 40.0 MCV 84 MCH 28.7 MCHC 34.0 RDW 11.6 L Plt Count 275 MPV 9.3 Immature Gran % Neutrophils % Lymphocytes % Monocytes % Eosinophils % Basophils % Nucleated RBC % Absolute Neutrophils Absolute Lymphocytes Absolute Monocytes Absolute Eosinophils Absolute Basophils VBG Lactate 1.1 Sodium 138 Potassium 3.1 L Chloride 103 Carbon Dioxide 28.5 Anion Gap 6.5 BUN 12 Creatinine 0.9 Est GFR (CKD-EPI 2020) 121.55 Glucose 120 H Calcium 9.7 Magnesium Total Bilirubin AST ALT Alkaline Phosphatase Total Protein Albumin Procalcitonin COVID-19 Source SARS-CoV-2 (PCR) Monoscreen Add-On Test Request 06/24/23 06/24/23 06:20 06:20 WBC RBC Hgb Hct MCV MCH MCHC RDW Plt Count MPV Immature Gran % Neutrophils % Lymphocytes % Monocytes % Eosinophils % Basophils % Nucleated RBC % Absolute Neutrophils Absolute Lymphocytes Absolute Monocytes Absolute Eosinophils Absolute Basophils VBG Lactate Sodium Potassium Chloride Carbon Dioxide Anion Gap BUN Creatinine Est GFR (CKD-EPI 2020) Glucose Calcium Magnesium 2.3 Total Bilirubin AST ALT Alkaline Phosphatase Total Protein Albumin Procalcitonin COVID-19 Source SARS-CoV-2 (PCR) Monoscreen Add-On Test Request DONE
[2023-06-24 12:11] VITALS: BP 123/80; PULSE 56; RESP 16; TEMP 36.2; O2SAT 99
[2023-06-24] MEDS: Potassium Chloride 20 MEQ TABCR 40 MEQ PO ×2 (13:20→21:25)
[2023-06-24 15:23] VITALS: BP 154/78; PULSE 59; RESP 18; TEMP 37.1; O2SAT 99
[2023-06-24] MEDS: Acetaminophen 500 MG TAB 1000 MG PO (15:31)
[2023-06-24 19:58] VITALS: BP 128/64; PULSE 57; RESP 18; TEMP 36.5; O2SAT 96
[2023-06-25 00:08] VITALS: BP 130/81; PULSE 71; RESP 18; TEMP 36.2; O2SAT 98
[2023-06-25] MEDS: metroNIDAZOLE 500 MG/100 ML BAG 100 MG IVPB (02:04)
[2023-06-25] MEDS: Acetaminophen 500 MG TAB 1000 MG PO (02:09)
[2023-06-25 03:18] VITALS: BP 132/78; PULSE 73; RESP 18; TEMP 36.1; O2SAT 98
[2023-06-25] MEDS: AMPICILLIN/SULBACTAM 3 GM in Normal Saline 100 ML IVPB (03:33)
[2023-06-25 07:13] LABS: HCT 42.6 % (40.0-50.0); HGB 14.4 g/dL (13.5-17.5); MCH 28.8 pg (27.0-33.0); MCHC 33.8 % (32.0-36.0); MCV 85 fL (80-95); MPV 9.4 fL (8.0-11.0); Platelet Count 286 10^3/uL (130-400); RDW 11.8 % (11.8-14.1); RDW-SD 36.5 fL; WBC 11.37 10^3/uL (4.4-10.8)
[2023-06-25 07:42] LABS: Anion Gap 9.1 mmol/L (3-11); BUN 14 mg/dL (7-18); CO2 25.9 mmol/L (21.0-32.0); CREATININE 1.1 mg/dL (0.70-1.30); Calcium 10.1 mg/dL (8.5-10.1); Chloride 103 mmol/L (98-107); Estimated GFR 95.54 (mL/min/1.73m2); Glucose 99 mg/dL (74-106); Potassium 4.6 mmol/L (3.5-5.1); Sodium 138 mmol/L (136-145)
[2023-06-25 07:46] LABS: Magnesium 2.3 mg/dL (1.8-2.4)
[2023-06-25] MEDS: Methadone Liquid 10 MG/ML 150 MG PO (07:52)
[2023-06-25] MEDS: Potassium Chloride 20 MEQ TABCR 40 MEQ PO (07:53)
[2023-06-25] MEDS: Omeprazole 20 MG CAPCR PO (07:53)
[2023-06-25 08:00] VITALS: BP 162/96; PULSE 67; RESP 20; O2SAT 98
--- NOTE | 2023-06-25 09:16 | DSE_ITS ---
Date of service: 06/25/23 Time of Service: 09:16 DS: Diagnosis Discharge Diagnosis (1) Peritonsillar abscess: (2) Sepsis: Status: Deleted Discharge Plan Disposition Patient Disposition: Home Condition: Improving Discharge Details Reason For Visit: Peritonsillar abcess Admit Date/Time: 06/23/23 15:07 Admit Provider: Radha Arellano Attending Provider: Radha Arellano Primary Care Provider: Yony Brooks Hospital Course Hospital Course: This 27 years old male without significant past medical history walked into the Ed at [facility] on 06/23/23 with a complaint of sore throat for 10 days.?He reported difficulty eating, night sweats, denied fevers and chills. Tachycardia on arrival to 130's noted upon arrival to the emergency room at [facility]. The emergency room provider reported right peritonsillar swelling on exam with uvular deviation, neck CT showed right large tonsilar abscess and 2 attemps to drain the abscess produced minimal output. The ED provider mentioned findings discussed with? Dr. Burr radiologist and? ENT connie cleaner Dr. Brown who also reviewed imaging. It was also reported that the patient had no respiratory distress or vocal changes, no indication of airway compromise, no need for intubation. Procalcitonin was normal, lactate? 2.1 with marked leukocytosis? and he was treated? for sepsis with 2L IVF, IV unasyn for intraoral carol ann.? Tylenol/toradol/methyl prednisone were administered for symptoms in the ED.?Repeated lactate was 1.1., HR was in the 90's. The patient was discussed with hospitalist connie cleaner, Dr. Arellano and patient was accepted to medicine service as an inpatient for further evaluation and management of tonsilar abscess and suspected sepsis.? The patient was comfortable and? calm when seen and pain had been well managed with Toradol and Acetaminophen.The patient reported no further pain and can take acitaminophen as needed upon discharge. He denied shortness of breath and improved swallowing and the patient is tolerating a regular diet.The patient denies, respiratory distress or compromise, hematemesis, nausea, vomiting or abdominal pain. The patient reported smoking fentanyl, drinking? socially and getting daily methadone which was continued here;denying IV drug use. The patient was seen by Dr. Brown, ENT and recommendation was made for disch arge today 06/25 on Augmentin 875/125 for 10 days. WBC is down to 11.37 and other labs are unremarkable today; blood cultures are negative at 24 hours. The patient will follow up with his primary care provider upon discharge and can further follow with Dr. Brown if this condition reoccurred. . The patient is discharged home without any further need. Home Meds and New Rx's Prescriptions: New amoxicillin-pot clavulanate 875-125 mg tablet 1 tab PO Q12H Qty: 20 0RF Continued methadone 10 mg/5 mL solution 150 mg PO DAILY Patient Comments: PT reports change in dose. Discharge Instructions Stand Alone Forms: Nursing Discharge Form Referrals: Moises Brown MD [[facility] STAFF PHYSICIAN] - (Follow up, peritonsillar abscess PRN) Yony Brooks MD [Primary Care Provider] - 07/03/23 11:15 am (You will be with Dr Dumont ) Activity:: Activity as Tolerated Equipment/Supplies:: No Equipment Needed Diet:: As Tolerated Discharge Orders Discharge Orders: Discharge Order (Routine); Ordered 06/25/23 Ordered By: Yadira Hale Discharge Data Discharge Date/Time-TO BE ENTERED AT DEPARTURE: 06/25/23 10:36 DS: Summary Time Spent with Patient providing and/or coordinating discharge services: Greater than 30 minutes Status at Discharge Functional status at discharge: independent ambulation Overall status at discharge: patient is progressing back to baseline Mental Status: mental status grossly normal Speech and Movement: speech and movement normal Mood: congruent mood Affect: normal affect Exam Narrative Exam Narrative: The patient was inpatient to leave the hospital and a complete physical exam could not be completed. As per nursing report he was getting agitated and ready to leave the hospital at 7 AM When seen yesterday on second round at 13:55 to update the patient after meeting with ENT, Dr. Smith. He was pain free, w/o acute distress and no respiratory compromise. He looked pink, perfusing well and tolerating a regular diet consistency. Psych Mental Status: mental status grossly normal Speech and Movement: speech and movement normal Mood: congruent mood Affect: normal affect DS: Data Vitals/I&O Vitals and I&O: Vital Signs Temperature 36.1 C L 06/25/23 03:18 Temperature Source Tympanic 06/25/23 03:18 Pulse 67 06/25/23 08:00 Pulse Rhythm Regular 06/24/23 21:46 Pulse 62 06/23/23 14:10 Respiratory Rate 20 06/25/23 08:00 Respiratory Effort Normal, Non-Labored, Short of Breath 06/24/23 21:46 Respiratory Depth Normal 06/24/23 21:46 Respiratory Pattern Normal 06/24/23 21:46 Blood Pressure 162/96 H 06/25/23 08:00 Blood Pressure Mean 100 06/23/23 17:15 Pulse Oximetry 98 06/25/23 08:00 Oxygen Delivery Method Room Air 06/25/23 08:00 Oxygen Flow Rate 0 06/25/23 08:00 Pain Level 3 06/25/23 07:52 Intake & Output 06/24/23 06/24/23 06/25/23 11:59 23:59 11:59 Intake Total 210 / 710 500 / 710 700 / 700 Balance 210 / 710 500 / 710 700 / 700 Weight 118.932 kg Intake: IV 210 / 710 500 / 710 100 / 100 Oral 600 / 600 Other: Urine Appearance Clear Comment unmeasured, pt independent declined toileting Voiding Methods Toilet Data Completed and Pending Labs on day of discharge: Labs from last 24 hours 06/25/23 06/25/23 06/25/23 06:59 06:59 06:59 WBC 11.37 H RBC 5.00 Hgb 14.4 Hct 42.6 MCV 85 MCH 28.8 MCHC 33.8 RDW 11.8 Plt Count 286 MPV 9.4 Sodium 138 Potassium 4.6 D Chloride 103 Carbon Dioxide 25.9 Anion Gap 9.1 BUN 14 Creatinine 1.1 Est GFR (CKD-EPI 2020) 95.54 Glucose 99 Calcium 10.1 Magnesium 2.3 Add-On Test Request 06/24/23 06/24/23 06:20 06:20 WBC RBC Hgb Hct MCV MCH MCHC RDW Plt Count MPV Sodium Potassium Chloride Carbon Dioxide Anion Gap BUN Creatinine Est GFR (CKD-EPI 2020) Glucose Calcium Magnesium 2.3 Add-On Test Request DONE 06/23/23 12:22 Tonsil - Not Specified Group A Streptococcus Culture - Pending Preliminary micro results at discharge 06/23/23 12:30 Blood Culture - Preliminary Blood NO GROWTH 24 HOURS 06/23/23 12:18 Blood Culture - Preliminary Blood NO GROWTH 24 HOURS 06/23/23 12:22 Group A Streptococcus Culture - Pending Tonsil - Not Specified PFSH Medical History (Updated 06/26/23 @ 00:06 by JAE STARK) Abscess of tonsil Back pain Generalized anxiety disorder Headache Obesity Peritonsillar abscess Peritonsillar cellulitis Substance abuse Social History Smoking/Tobacco Use Status: Current every day Tobacco Type: cigarettes Smoking risk assessment performed?: Yes Alcohol Intake: current Alcohol Intake frequency: a few times a month Drug use: Daily Substance use type: marijuana Housing: house Do you feel safe at home: Yes Do you feel safe in your relationship?: Yes Time Spent with Patient Time Spent with Patient: 70-84 minutes4 Time was spent: preparing to see the patient(eg.review tests), obtaining and/or reviewing separately otained hiistory, ordering medications,tests, procedures, referring, communicating with other health dog day care attendant, indepentently interpreting results, counseling the patient and care coordination
== END 2023-06-25 10:36 | disposition home or self-care (01) | DRG 872 ==
LOC: ER 15:27 → MS 18:12
PROVIDERS: Nurse Practitioner Acute Care; Admitting Provider Internal Medicine; Emergency Provider Student in an Organized Health Care Education/Training Program; PCP Internal Medicine; Visit Provider Internal Medicine
DX: A41.9 Sepsis, unspecified organism (principal); J36 Peritonsillar abscess; E66.9 Obesity, unspecified; Z68.32 Body mass index [BMI] 32.0-32.9, adult; F19.10 Other psychoactive substance abuse, uncomplicated; F41.1 Generalized anxiety disorder; F17.210 Nicotine dependence, cigarettes, uncomplicated
CPT/HCPCS: 36415; 42700; 70491; 80048; 80053; 84145; 85027; 87040; 87426; 87635; 87880; 96365; 96366; 96375; 96376; 99285; 83605; 83735; 85025; 86308; 87081; 99223; 99232; 99239; J0131; J0295; J1885; J2930

== ENCOUNTER 2024-12-14 10:46 | Emergency (ER) | payer OTHER, SELFPAY ==
[2024-12-14 10:54] VITALS: BP 146/76; PULSE 68; RESP 18; TEMP 36.6; O2SAT 97
[2024-12-14 10:56] VITALS: BP 146/76; PULSE 68; RESP 18; TEMP 36.6; O2SAT 97
--- NOTE | 2024-12-14 11:41 | ED.GENADUL_ITS ---
Discharge Plan Disposition Patient Disposition: Home Condition: Stable Discharge Details Clinical Impression: Foreign body in eye Primary Care Provider: Yony Brooks ED Provider: Batsheva Babin Home Meds and New Rx's Prescriptions: No Action methadone 10 mg/5 mL solution 150 mg PO DAILY Patient Comments: PT reports change in dose. amoxicillin-pot clavulanate 875-125 mg tablet 1 tab PO Q12H Qty: 20 0RF Discharge Instructions Instructions: Foreign Body in Eye (DC) Additional Instructions: You were seen in the emergency department today for evaluation of a potential foreign body in your eye. This foreign body was removed prior to coming to the emergency department, and in our department you have a full physical examination where we evaluated the surface of your eye and did not note any ongoing cuts or lacerations/abrasions. You did have some evidence of irritation in the lower left quadrant of your left eye, for which we recommend that you utilize erythromycin ointment, you can do this up to 4 times per day, use half-inch strip on your eyelid. If your symptoms continue you need to follow-up with an eye doctor. Please follow-up with your primary care provider in the next few days to discuss this visit and any symptoms that change, worsen, or persist. Thank you for allowing us to be part of your care. Stand Alone Forms: Work Release HPI General Mode of arrival: ambulatory . Date/Time Provider Initiated Documentation: 12/14/24 10:54 . Limitations to Documentation: no limitations . Information obtained by: patient and old records reviewed . HPI Narrative: HPI: This is a 29-year-old male patient, previously healthy presenting for evaluation of eye irritation. He reports that approximately 1 week ago he was grinding metal, was wearing his safety glasses but thinks that a piece of metal flew into his left eye. He states that he believes he was able to get it out, but has noticed some ongoing irritation and had some swelling in his eye this morning. His coworker looked at his eye yesterday and told him that he had a large cut on the corner of his eye, prompting him to seek care today. He states that he is not experiencing any eye pain, vision changes, or discharge. He has not had any additional injury to his eye. He does not wear contact lenses or glasses. Does not use any eyedrops and has no other ocular history. Exam: Gen: Awake and alert, in no apparent distress HEENT: PERRL, EOMs are full, the patient has evidence of conjunctival injection in the inferolateral quadrant of his left eye. No foreign bodies identified on slit-lamp examination or with eversion of the eyelid. There is no fluorescein uptake suggestive of corneal abrasion. He has no periorbital swelling or ecchymosis, no discharge from the affected left eye. The patient does not have evidence of a rust ring. Neck: Supple Lungs: No apparent respiratory distress, normal respiratory effort. CV: Appears well perfused Abdomen: Non-distended MSK: Moves 4 extremities without apparent limitation in ROM Skin: Visualized skin without rashes, cyanosis. Neuro: Normal Gait, no obvious focal deficits or facial asymmetry. Speaks in full, clear sentences. Psych: Appropriate for situation. MDM: This is a 29-year-old male patient presenting for evaluation of foreign body in the eye. Reassuringly, on my physical examination as noted above the foreign body does appear to have come spontaneously dislodged and is no longer present. Certainly considered corneal abrasion, rust ring, and the patient's report of periorbital swelling in the morning did increase my concern for periorbital edema or cellulitis, though this is not evident on my physical exa mination today. It is possible that due to corneal irritation he has been rubbing his eye inadvertently at nighttime. ED Course: Following slit-lamp exam, I think that it would be prudent to start t his patient on erythromycin ointment, and I recommended follow-up with ophthalmology as needed for ongoing symptoms. At this time, the patient has had a full medical evaluation and is safe for discharge to home. They are hemodynamically stable, ambulatory, and tolerating PO. They are understanding of the follow-up plan and return precautions. They left our facility without incident. Batsheva Babin MD Related Data Home Medications ?Medication ?Instructions ?Recorded ?Confirmed methadone 10 mg/5 mL oral solution 150 mg PO DAILY 02/02/19 06/23/23 amoxicillin 875 mg-potassium 1 tab PO Q12H peritonsillar 06/25/23 clavulanate 125 mg tablet abscess #20 tabs Previous Rx's ?Medication ?Instructions ?Recorded amoxicillin 875 mg-potassium 1 tab PO Q12H peritonsillar 06/25/23 clavulanate 125 mg tablet abscess #20 tabs Allergies Allergy/AdvReac Type Severity Reaction Status Date / Time No Known Allergies Allergy Unverified 10/25/21 16:28 General Stated Complaint: EyeProblem ALESSANDRO: 4 Course Vital Signs Vital signs: Vital Signs Temperature 36.6 C 12/14/24 10:54 Pulse 68 12/14/24 10:54 Respiratory Rate 18 12/14/24 10:54 Blood Pressure 146/76 H 12/14/24 10:54 Pulse Oximetry 97 12/14/24 10:54 Temperature 36.6 C 12/14/24 10:56 Pulse 68 12/14/24 10:56 Respiratory Rate 18 12/14/24 10:56 Blood Pressure 146/76 H 12/14/24 10:56 Pulse Oximetry 97 12/14/24 10:56 Medical Decision Making Quality:SDOH Health Related Social Needs: No Data to Display PFSH All Active Problems (Updated 12/14/24 @ 11:44 by Batsheva Babin MD) Foreign body in eye (Acute) Medical History (Updated 12/14/24 @ 11:44 by Batsheva Babin MD) Peritonsillar cellulitis Peritonsillar abscess Abscess of tonsil Obesity Substance abuse Generalized anxiety disorder Back pain Headache Social History Smoking/Tobacco Use Status: Current every day Tobacco Type: cigarettes Smoking risk assessment performed?: Yes Alcohol Intake: current Alcohol Intake frequency: a few times a month Drug use: Daily Substance use type: marijuana Housing: house Do you feel safe at home: Yes Do you feel safe in your relationship?: Yes
[2024-12-14 11:57] VITALS: BP 128/60; PULSE 69; RESP 17; O2SAT 98
[2024-12-14] MEDS: Erythromycin Ophth Oint 3.5 GM TUBE OD (11:57)
== END 2024-12-14 11:57 | disposition home or self-care (01) ==
LOC: ER 12:00
PROVIDERS: Emergency Provider Emergency Medicine; PCP Internal Medicine
DX: T15.92XA Foreign body on external eye, part unspecified, left eye, initial encounter (principal); F17.210 Nicotine dependence, cigarettes, uncomplicated; X58.XXXA Exposure to other specified factors, initial encounter
CPT/HCPCS: 99283